=== PATIENT | male | born 1980 | race Caucasian/White ===

== ENCOUNTER → 2018-12-20 | Outpatient (CLI) | payer OTHER ==
[~2018-12-20] MED LIST: AMITRIPTYLINE H25 M2 PO; AUGMENTIN 875875 MG PO; CIALIS5 MG PO; DEPO-TESTO200 MG/1 M IM; FLEXERIL PO; MEDROL4 MG PO; MOBIC15 MG PO; NEURONTIN 300300 M1 PO; NORCO 5-325 TA1 EACH PO; OXYCODONE-ACET1 EACH PO
== END ==
LOC: M.RAD 10:12
DX: M25.511 Pain in right shoulder (principal)

== ENCOUNTER 2019-11-16 19:50 | Emergency (ER) | payer OTHER ==
[~2019-11-16] VITALS: Ht 188 cm; Wt 99.8 kg
[2019-11-16] MEDS ORDERED: NAPROSYN500 M1 PO (20:07)
[2019-11-16 20:25] LABS: URINE BILIRUBIN NEGATIVE (Negative); URINE BLOOD NEGATIVE (Negative); URINE CLARITY CLEAR; URINE COLOR YELLOW; URINE GLUCOSE-RANDOM NEGATIVE (Negative); URINE KETONES NEGATIVE (Negative); URINE LEUKOCYTES-REFLEX NEGATIVE (Negative); URINE NITRITE-REFLEX NEGATIVE (Negative); URINE PROTEIN NEGATIVE (Negative); URINE SPECIFIC GRAVITY 1.025 (1.005-1.030); URINE UROBILINOGEN 0.2 E.U./dl (0.2-1.0)
[2019-11-16 20:40] LABS: AMP/METHAMP Negative (Negative); BARBITURATES Negative (Negative); BENZODIAZEPINES Negative (Negative); COCAINE Negative (Negative); METHADONE Negative (Negative); OPIATES Negative (Negative); PCP Negative (Negative); THC Negative (Negative)
[2019-11-16 20:42] LABS: ABSOLUTE BASOPHILS 0.1 thou/uL (0.0-0.2); ABSOLUTE EOSINOPHILS 0.2 thou/uL (0.0-0.7); ABSOLUTE LYMPHOCYTES 2.9 thou/uL (0.8-5.3); ABSOLUTE MONOCYTES 0.5 thou/uL (0.0-1.2); ABSOLUTE NEUTROPHILS 5.2 thou/uL (1.6-8.1); BASOPHILS 0.9 %; EOSINOPHILS 2.2 %; HEMATOCRIT 47.8 % (42.0-52.0); HEMOGLOBIN 16.8 gm/dL (14.0-18.0); LYMPHOCYTES 32.8 %; MCHC 35.1 g/dL (28.0-37.0); MCV 85.6 fL (80.0-100.0); MONOCYTES 5.5 %; MPV 8.2 fl. (7.2-11.1); NUCLEATED RBCS 0 /100WBC; PLATELET COUNT* 255 thou/uL (150-400); POLYS 58.6 %; RBC 5.59 mil/uL (4.50-6.00); RDW-CV 12.7 % (10.5-14.5); WBC 8.9 thou/uL (4.0-11.0)
[2019-11-16 20:51] LABS: CREATININE 1.1 mg/dL (0.6-1.3); POTASSIUM 3.4 mmol/L (3.5-5.1)
[2019-11-16 20:54] LABS: ALBUMIN 3.9 g/dL (3.4-5.0); TOTAL BILIRUBIN 0.4 mg/dL (<0.1-1.0); TOTAL PROTEIN 7.1 g/dL (6.4-8.2)
[2019-11-16 20:55] LABS: SALICYLATE < 2.8 mg/dL (2.8-20.0)
[2019-11-16 20:57] LABS: ACETAMINOPHEN < 2 ug/mL (10-30); ALCOHOL < 10 mg/dL (<10)
[2019-11-16 23:21] VITALS: BP 140/102
== END 2019-11-16 23:21 | disposition home or self-care (01) ==
LOC: M.ERS 19:50
PROVIDERS: Emergency Medicine
DX: F32.9 Major depressive disorder, single episode, unspecified (principal); F41.9 Anxiety disorder, unspecified; I10 Essential (primary) hypertension; E78.00 Pure hypercholesterolemia, unspecified; G89.29 Other chronic pain; F17.210 Nicotine dependence, cigarettes, uncomplicated; Z79.899 Other long term (current) drug therapy

== ENCOUNTER 2020-04-21 08:12 | Emergency (ER) | payer OTHER ==
[~2020-04-21] VITALS: Ht 188 cm; Wt 97.5 kg
[~2020-04-21 08:12] MED LIST changes: +NAPROSYN500 M1 PO
[2020-04-21] MEDS ORDERED: CIPROFLOXIN HC2.5 M1 OPHTHALMIC (08:48)
[2020-04-21 08:54] VITALS: BP 133/90
== END 2020-04-21 08:56 | disposition home or self-care (01) ==
LOC: M.ERS 08:12
DX: H18.822 Corneal disorder due to contact lens, left eye (principal); G89.29 Other chronic pain; I10 Essential (primary) hypertension; E78.00 Pure hypercholesterolemia, unspecified; Z79.899 Other long term (current) drug therapy